=== PATIENT | female | born 1955 | race African-American/Black ===

== ENCOUNTER 2018-06-12 17:10 | Emergency (ER) | payer BC, MEDICARE ==
--- NOTE | 2018-06-12 17:51 | RAD ---
AP VIEW CHEST: Date: 06/12/18 HISTORY: Chest pain. FINDINGS: AP view of chest obtained and demonstrates the lungs to be well aerated. No evidence of active intrat horacic disease seen. No evidence of effusions, pneumonia, or pneumothorax seen. Sternotomy wires see n. IMPRESSION: Unremarkable AP view of chest. POS: [facility]
[2018-06-12 17:59] LABS: #Basophils 0.1 thou/uL (0.0-0.2); #Lymphocytes 2.1 thou/uL (1.20-3.40); #Monocytes 0.4 thou/uL (0.11-0.59); #Neutrophils 4.1 thou/uL (1.40-6.50); %Basophils 1.1 % (0.0-1.0); %Eosinophils 0.1 % (0.0-10.0); %Lymphocytes 30.9 % (21.0-51.0); Hemoglobin 13.6 g/dL (12.0-16.0); Mean Corpuscular HGB CONC 32.5 g/dL (32.0-36.0); Mean Corpuscular Hemoglobin 29.2 pg (27.0-31.0); Mean Corpuscular Volume 89.9 fL (78.0-98.0); Mean Platelet Volume 8.2 fL (7.4-10.4); Platelet Count 237 thou/uL (130-400); RBC Distribution Width 13.3 % (11.5-14.5); Red Blood Cell (RBC) Count 4.66 mill/uL (4.20-5.40); White Blood Cell (WBC) Count 6.6 thou/uL (4.8-10.8)
[2018-06-12 18:14] LABS: ALT (SGPT) 18 U/L (8-55); AST (SGOT) 21 U/L (5-34); Albumin 4.2 g/dL (3.4-4.8); Alkaline Phosphatase 76 U/L (40-150); Anion Gap 13 mmol/L (10-20); BUN (Urea Nitrogen) 10 mg/dL (9.8-20.1); Bilirubin, Total 0.3 mg/dL (0.2-1.2); Calc. Creatinine Clearance 0 mL/min (70-130); Calcium 9.7 mg/dL (7.8-10.44); Carbon Dioxide 26 mmol/L (23-31); Chloride 106 mmol/L (98-107); Estimated GFR-MDRD 83; Globulin 3.2 g/dL (2.4-3.5); Glucose 86 mg/dL (80-115); Lipase 25 U/L (8-78); Potassium 3.8 mmol/L (3.5-5.1); Protein, Total 7.4 g/dL (6.0-8.3); Sodium 141 mmol/L (136-145)
[2018-06-12] MEDS ORDERED: Nitroglycerin 2% Ointment 1 INCH/1 GM Packet ONE (18:18)
[2018-06-12] MEDS ORDERED: Aspirin Chewable 81 MG TAB ONE (18:18)
== END 2018-06-12 18:56 | disposition left against medical advice (07) ==
LOC: SCSER 17:10
DX: R07.9 Chest pain, unspecified (principal); E78.5 Hyperlipidemia, unspecified; I25.10 Atherosclerotic heart disease of native coronary artery without angina pectoris; I50.9 Heart failure, unspecified; F41.9 Anxiety disorder, unspecified
CPT/HCPCS: 71045; 80053; 83690; 84484; 85025; 85379; 93005

== ENCOUNTER 2019-02-10 09:31 | Outpatient (CLI) | payer BC, MEDICARE, MEDICAID ==
--- NOTE | 2019-02-10 10:25 | ULT ---
EXAM: US Abdominal CLINICAL HISTORY: Constipation. Bloating.. COMPARISON: None. FINDINGS: Pancreas: The head and proximal pancreatic body have a normal echotexture. Pancreatic duct measures 0.2 cm. The remainder of the pancreas is obscured. IVC: Unremarkable Aorta: Unremarkable Liver:Heterogeneous echotexture which may be due to hepatic steatosis or hepatocellular disease. Subs equent limited evaluation for hepatic masses and intrahepatic biliary dilatation. Right hepatic lobe measures 14.3 cm. Gallbladder: No sonographic evidence of cholelithiasis. There may be a small amount of sludge in the lumen of the gallbladder. Gallbladder wall is not thickened. No pericholecystic fluid. Holcomb's sign:Comment is not made on the presence of or absence of a Holcomb's sign CBD: 0.5 cm Right kidney: No hydronephrosis. Right kidney measuring 9.1 x 4.5 x 4.9 cm in length. Left kidney: No hydronephrosis. Anechoic focus measuring 2.7 x 2.0 x 2.2 cm compatible with an exophy tic cyst emanating from the upper pole of the left kidney. . Left kidney measuring 6.2 x 10.4 x 4.8 cm in length Spleen: Normal echotexture. 8.6 cm in maximum dimension IMPRESSION: 1. No sonographic evidence of cholelithiasis or cholecystitis. 2. Small amount sludge in lumen of gallbladder. 3. Heterogeneous echotexture of liver likely due to hepatic steatosis or hepatocellular disease. If t here is concern for hepatic masses, consider liver mass protocol CT. 4. No hydronephrosis. Left renal cyst. Transcribed Date/Time: 02/10/2019 11:01 AM
== END 2019-02-10 09:32 | disposition home or self-care (01) ==
LOC: ULT 09:31
PROVIDERS: ATTEND Internal Medicine Gastroenterology
DX: D39.12 Neoplasm of uncertain behavior of left ovary (principal); K59.09 Other constipation; R14.0 Abdominal distension (gaseous); I25.10 Atherosclerotic heart disease of native coronary artery without angina pectoris; K63.5 Polyp of colon; N28.1 Cyst of kidney, acquired; K83.9 Disease of biliary tract, unspecified; K76.89 Other specified diseases of liver
CPT/HCPCS: 76700

== ENCOUNTER 2019-02-17 12:47 | Outpatient (CLI) | payer BC, MEDICARE, MEDICAID ==
--- NOTE | 2019-02-17 14:53 | CT ---
CT of the abdomen: 02/17/2019 COMPARISON: Abdominal ultrasound 02/10/2019 HISTORY: Abnormal hepatic echotexture noted on recent ultrasound Technique: Axial CT imaging obtained at 5 mm intervals from lung bases through mid sacrum with IV and oral contrast. Coronal and sagittal reformatted imaging obtained. Pelvis was not imaged on this exam. FINDINGS: The visualized lung bases are unremarkable. There is mild prominence of the wall of the stomach in the region of the fundus posteriorly, just dis constantine to the gastroesophageal junction. This could represent true abnormal wall thickening or underdistention. This could be best assessed with direct visualization. The hepatic parenchyma appears grossly unremarkable on the provided portal venous phase imaging. Limi sandra assessment of the gallbladder is grossly unremarkable. The spleen, pancreas, adrenal glands, and kidneys demonstrate no acute findings. There is a cyst in the upper pole of the left kidney measu ring 2.5 cm. The vascular structures of the abdomen appear patent. No abdominal lymphadenopathy. Mild lower lumbar spine facet hypertrophic change is present. No worrisome osseous lesion. IMPRESSION: No focal hepatic abnormality. Wall prominence of the stomach as detailed above.
== END 2019-02-17 12:48 | disposition home or self-care (01) ==
LOC: BICCT 12:47
PROVIDERS: ATTEND Internal Medicine Gastroenterology
DX: R93.5 Abnormal findings on diagnostic imaging of other abdominal regions, including retroperitoneum (principal)
CPT/HCPCS: 74160; 82565